=== PATIENT | female | born 2000 | race Caucasian/White ===

== ENCOUNTER 2018-11-17 14:18 | Emergency (ER) | payer BC ==
[2018-11-17] MEDS ORDERED: DEXAMETHASONE 10 MG/ML VIAL IVP ONE (14:42)
[2018-11-17] MEDS ORDERED: NS 1,000 ML IV ONE (14:42)
[2018-11-17] MEDS ORDERED: KETOROLAC 15 MG/1 ML SDV IVP ONE (14:42)
--- NOTE | 2018-11-17 14:45 | EDPHY ---
H & P Stated Complaint: st fever chills seen at the [facility] strep neg Time Seen by Provider: 11/17/18 14:37 HPI/ROS: CHIEF COMPLAINT: Sore throat HISTORY OF PRESENT ILLNESS: 18-year-old immunocompetent female complaining of sore throat for the past 3 days. Initially seen at [facility] on Sunday (today is Sunday) had negative strep testing but notes continued tonsillar enlargement exudate. No change in voice. No chest pain. No abdominal pain. No back pain. No rash. No left upper quadrant or flank pain or trauma REVIEW OF SYSTEMS: 10 systems reviewed and negative with the exception of the elements mentioned in the history of present illness PAST MEDICAL & SURGICAL HISTORY: No pertinent medical or surgical history SOCIAL HISTORY: Student nonsmoker PHYSICAL EXAM (Prior to examination, patient consented to physical exam, hands were washed and my usual and customary physical exam procedures followed) 1) GENERAL: Well-developed, well-nourished, alert and oriented. Appears to be in no acute distress. 2) HEAD: Normocephalic, atraumatic 3) HEENT: Pupils equal, round, reactive to light bilaterally. Sclera anicteric. Nasopharynx, oropharynx, clear, no lesions. Dry Mucous membranes. Bilateral tonsils are symmetrically enlarged with white exudate with no pointing of the uvula, no asymmetry. Ears bilaterally with normal tympanic membranes. Evidence of otitis media otitis externa 4) NECK: Full range of motion, no meningeal signs. Positive cervical adenopathy , tender. 5) LUNGS: Clear auscultation bilaterally, no wheezes, no rhonchi, no retractions. 6) HEART: Regular rate and rhythm, no murmur, no heave, no gallop. 7) ABDOMEN: [No guarding, no rebound, no focal tenderness, negative McBurney's, negative Jay's, negative Rovsing's, negative peritoneal sign. No left upper quadrant pain, no splenomegaly, no flank pain. 8) MUSCULOSKELETAL: Moving all extremities, no focal areas of tenderness, no obvious trauma. No peripheral edema or discoloration. 9) BACK: No CVA tenderness, no midline vertebral tenderness, no fluctuance, no step-off, no obvious trauma, no visual or palpable abnormality. 10) SKIN: No rash, no petechiae. 11) Psychiatric: Patient is oriented X 3, there is no agitation. DIFFERENTIAL DIAGNOSIS: In no particular order, my differential diagnosis includes, but is not limited to, strep pharyngitis, viral pharyngitis, peritonsillar abscess, retropharyngeal abscess or phlegmon, mononucleosis, meningitis, Lemierre syndrome. - Personal History LMP (Females 10-55): Extended Cycle BCP/Inj Current Tetanus Diphtheria and Acellular Pertussis (TDAP): Yes - Medical/Surgical History Hx Asthma: No Hx Chronic Respiratory Disease: No Hx Diabetes: No Hx Cardiac Disease: No Hx Renal Disease: No Hx Cirrhosis: No Hx Alcoholism: No Hx HIV/AIDS: No Hx Splenectomy or Spleen Trauma: No Other PMH: denies - Social History Smoking Status: Never smoked Constitutional: Initial Vital Signs Temperature (C) 36.8 C 11/17/18 14:21 Heart Rate 97 11/17/18 14:21 Respiratory Rate 18 11/17/18 14:21 Blood Pressure 132/93 H 11/17/18 14:21 O2 Sat (%) 97 11/17/18 14:21 O2 Delivery Mode Room Air Allergies/Adverse Reactions: cephalexin [From Keflex] Allergy (Verified 11/17/18 14:20) Home Medications: Medication Instructions Recorded Amoxicillin/Clavulanate Pot 875 mg PO BID #14 tab 11/17/18 [Augmentin 875 mg tab] Blisovi 24 Fe Tablet 11/17/18 methylPREDNISolone [Medrol Dose 4 mg PO DAILY #1 ea 11/17/18 Sea] Medical Decision Making ED Course/Re-evaluation: 4:00 p.m.: Patient re-evaluated with serial exams most recently at this time. She notes improvement in symptoms after Decadron, Toradol, IV fluids. Voice is not muffled. She has no asymmetry of her tonsils with no pointing of the uvula. Doubt peritonsillar abscess. I do not think that imaging studies indicated at this time. We discussed her imaging results. Specifically she has negative mono. He is noted to have negative rapid strep test. High clinical suspicion for strep pharyngitis and recommended empiric treatment. She will be prescribed Augmentin as well as Medrol Dosepak. Today is Tyson. Recommend follow up with on-call ENT in the next 1-2 days. Definitely in the meantime she develops any worsening symptoms she needs to seek immediate medical attention. She feels comfortable being discharged. Patient feels comfortable being discharged. All questions and concerns addressed by myself. Patient given my usual and customary discharge precautions and instructions regarding their clinical impression. Care of patient under supervision of secondary supervising physician Dr Fernandez with whom I discussed case. - Data Points Laboratory Results: Laboratory Results 11/17/18 14:50 11/17/18 14:50 11/17/18 11/17/18 11/17/18 Unknown 14:50 14:50 WBC RBC Hgb Hct MCV MCH MCHC RDW Plt Count MPV Neut % (Auto) Lymph % (Auto) White % (Auto) Eos % (Auto) Baso % (Auto) Nucleat RBC Rel Count Absolute Neuts (auto) Absolute Lymphs (auto) Absolute Monos (auto) Absolute Eos (auto) Absolute Basos (auto) Absolute Nucleated RBC Immature Gran % Immature Gran # Sodium 136 mEq/L mEq/L (135-145) Potassium 3.8 mEq/L mEq/L (3.5-5.2) Chloride 102 mEq/L mEq/L (97-110) Carbon Dioxide 22 mEq/l mEq/l (22-31) Anion Gap 12 mEq/L mEq/L (6-14) BUN 4 mg/dL L mg/dL (7-23) Creatinine 0.7 mg/dL mg/dL (0.6-1.0) Estimated GFR > 60 Glucose 97 mg/dL mg/dL (70-100) Calcium 9.6 mg/dL mg/dL (8.5-10.4) Beta HCG, Qual NEGATIVE Monoscreen NEGATIVE (NEGATIVE) Group A Strep Screen Group A Strep DNA Pending 11/17/18 11/17/18 14:50 14:40 WBC 9.10 10^3/uL 10^3/uL (3.80-9.50) RBC 4.20 10^6/uL 10^6/uL (4.18-5.33) Hgb 12.3 g/dL L g/dL (12.6-16.3) Hct 36.7 % L % (38.0-47.0) MCV 87.4 fL fL (81.5-99.8) MCH 29.3 pg pg (27.9-34.1) MCHC 33.5 g/dL g/dL (32.4-36.7) RDW 12.7 % % (11.5-15.2) Plt Count 206 10^3/uL 10^3/uL (150-400) MPV 10.7 fL fL (8.7-11.7) Neut % (Auto) 72.8 % % (39.3-74.2) Lymph % (Auto) 16.7 % % (15.0-45.0) White % (Auto) 9.6 % % (4.5-13.0) Eos % (Auto) 0.3 % L % (0.6-7.6) Baso % (Auto) 0.2 % L % (0.3-1.7) Nucleat RBC Rel Count 0.0 % % (0.0-0.2) Absolute Neuts (auto) 6.62 10^3/uL H 10^3/uL (1.70-6.50) Absolute Lymphs (auto) 1.52 10^3/uL 10^3/uL (1.00-3.00) Absolute Monos (auto) 0.87 10^3/uL H 10^3/uL (0.30-0.80) Absolute Eos (auto) 0.03 10^3/uL 10^3/uL (0.03-0.40) Absolute Basos (auto) 0.02 10^3/uL 10^3/uL (0.02-0.10) Absolute Nucleated RBC 0.00 10^3/uL 10^3/uL (0-0.01) Immature Gran % 0.4 % % (0.0-1.1) Immature Gran # 0.04 10^3/uL 10^3/uL (0.00-0.10) Sodium Potassium Chloride Carbon Dioxide Anion Gap BUN Creatinine Estimated GFR Glucose Calcium Beta HCG, Qual Monoscreen Group A Strep Screen NEGATIVE (NEGATIVE) Group A Strep DNA Medications Given: Discontinued Medications Dexamethasone (Decadron Injection) 10 mg IVP EDNOW ONE Stop: 11/17/18 14:43 Last Admin: 11/17/18 15:25 Dose: 10 mg Sodium Chloride (Ns) 1,000 mls @ 0 mls/hr IV ONCE ONE PRN Reason: Wide Open Stop: 11/17/18 14:43 Last Admin: 11/17/18 14:50 Dose: 1,000 mls Ketorolac Tromethamine (Toradol) 15 mg IVP EDNOW ONE Stop: 11/17/18 14:43 Last Admin: 11/17/18 15:25 Dose: 15 mg Departure - Departure Disposition: Home, Routine, Self-Care Clinical Impression: Acute streptococcal pharyngitis Condition: Good Instructions: Strep Throat (ED) Additional Instructions: Return to the ER immediately if you cannot swallow, have drooling, fevers, neck stiffness, cannot open your jaw, or any other symptoms that concern you. Referrals: Tad Berkowitz MD [Medical Doctor] - 1-2 days without fail Stand Alone Forms: School Excuse Prescriptions: Amoxicillin/Clavulanate Pot [Augmentin 875 mg tab] 875 mg PO BID #14 tab methylPREDNISolone [Medrol Dose Sea] 4 mg PO DAILY #1 ea
[2018-11-17 15:18] LABS: PLATELET COUNT 206 10^3/uL (150-400)
[2018-11-17 16:20] VITALS: BP 110/70
== END 2018-11-17 16:18 | disposition home or self-care (01) ==
DX: J02.0 Streptococcal pharyngitis (principal)
CPT/HCPCS: 96374; J1100; J1885